=== PATIENT | male | born 1995 | race Two or more races ===

== ENCOUNTER 2025-03-16 19:51 | Emergency (ER) | payer MEDICAID, SELFPAY ==
[2025-03-16 19:52] VITALS: BMI 20.7
[2025-03-16 20:09] VITALS: BP 139/81; PULSE 106; RESP 18; TEMP 37.1; O2SAT 98
[2025-03-16 21:01] LABS: Basophils # (Auto) 0.1 Thou/mm3 (0.0-0.2); Basophils % (Auto) 0 % (0-2.5); Eosinophils # (Auto) 0.0 Thou/mm3 (0.0-0.5); Eosinophils % (Auto) 0 % (0-10); Hematocrit 48.3 % (41.0-53.0); Hemoglobin 16.7 g/dL (13.5-16.0); Immature Granulocytes Auto 0.04 Thou/mm3 (0.00-0.00); Lymphocytes # (Auto) 1.8 Thou/mm3 (1.0-4.8); Lymphocytes % (Auto) 12 % (10-50); Mean Corpuscular HGB Conc 34.6 g/dl (31.0-37.0); Mean Corpuscular Hemoglobin 29.7 pg (25.0-35.0); Mean Corpuscular Volume 86 fL (80-100); Monocytes # (Auto) 0.7 Thou/mm3 (0.0-0.8); Monocytes % (Auto) 5 % (0-12); Neutrophils # (Auto) 12.4 Thou/mm3 (1.8-7.7); Neutrophils % (Auto) 82 % (37-80); Nucleated Red Blood Cell # 0.00 Thou/mm3 (0.00-0.00); Nucleated Red Blood Cell % 0 /100 WBC (0); Platelet Count 250 Thou/mm3 (140-440); RDW Standard Deviation 37.7 fL (35.1-43.9); Red Blood Count 5.62 Miln/mm3 (4.50-5.90); White Blood Count 15.0 Thou/mm3 (3.8-10.6)
[2025-03-16 21:23] LABS: Alanine Aminotransferase 16 U/L (10-49); Albumin, Serum 5.3 gm/dL (3.5-5.0); Albumin/Globulin Ratio 2.2 (1.2-2.2); Alkaline Phosphatase 56 U/L (46-116); Anion Gap 13 (7-16); Aspartate Amino Transferase 19 U/L (0-34); BUN/Creatinine Ratio 9 Ratio (12-20); Bilirubin,Total 0.6 mg/dL (0.3-1.2); Blood Urea Nitrogen 10 mg/dL (9-23); Calcium 9.7 mg/dL (8.3-10.6); Calcium (Corrected) 9.7 mg/dL (8.5-10.1); Carbon Dioxide 24.3 mMol/L (20.0-31.0); Chloride 102 mMol/L (98-107); Creatinine (Component) 1.1 mg/dL (0.6-1.3); Estimated Creatinine Clearance 84.7 mL/min (>60); Globulin 2.4 gm/dL (2.3-3.5); Glucose 123 mg/dL (74-106); Osmolality,Calculated 277 (275-295); Potassium 3.1 mMol/L (3.4-5.1); Sodium 139 mMol/L (136-145); Total Protein 7.7 gm/dL (5.7-8.2); Troponin I < 0.020 ng/mL (0.0-0.045); eGFR > 60 See Note
--- NOTE | 2025-03-16 22:01 | XR_ITS ---
EXAMINATION: PA chest single view TECHNIQUE: Upright PA chest single view Date and time: March 16, 2025, 10:12 p.m. INDICATIONS: Chest pain today FINDINGS: Normal heart size The lungs are clear. The osseous structures are intact. IMPRESSION: No active disease
[2025-03-16 22:48] LABS: Collection Type, Urine Voided; Squamous Epithelial Cell,Urine 0 /hpf (0-5); WBC,Urine 0 /hpf (0-5)
[2025-03-16 23:12] LABS: Bacteria,Urine Rare; Bilirubin,Urine Negative (Negative); Blood,Urine Negative (Negative); Clarity,Urine Clear (Clear/Hazy); Color,Urine Colorless (Lt Yel-Yel); Glucose, Urine Negative (Negative); Ketones,Urine Negative (Negative); Leukocyte Esterase,Urine Negative (Negative); Nitrite,Urine Negative (Negative); PH,Urine 5.5 (5.0-7.0); Protein,Urine Negative (Neg - Trace); RBC,Urine < 1 /hpf (0-3); Specific Gravity,Urine 1.003 (1.001-1.035); Urobilinogen,Urine Negative mg/dL (0.0-1.0)
--- NOTE | 2025-03-16 23:51 | PD.EDCHEST ---
ED Chest Pain RME/HPI General Chief Complaint: Anxiety Stated Complaint: ANXIETY, SHAKING Time Seen by Provider: 03/16/25 20:16 Arrival date/time: This is a case of 29-year-old male with no medical history came in in the emergency room due to on and off chest pain today no shortness of breath no palpitation patient verbalized anxiety and stress at work persistence of the symptoms this patient decided to sought consult here in the emergency room Limitations: no limitations Related Data Previous Rx's ?Medication ?Instructions ?Recorded hydroxyzine HCl 25 mg tablet 25 mg PO BID PRN anxiety #10 tabs 03/16/25 Allergies Allergy/AdvReac Type Severity Reaction Status Date / Time No Known Allergies Allergy Verified 03/16/25 19:52 Review of Systems Review of Systems Systems Reviewed: All systems reviewed, normal except as documented Constitutional Constitutional: Reports system reviewed and no additional complaints, except as documented and Reports as per HPI Cardiovascular Cardiovascular: Reports system reviewed and no additional complaints, except as documented and Reports as per HPI Respiratory Respiratory: Reports system reviewed and no additional complaints, except as documented and Reports as per HPI Gastrointestinal Gastrointestinal: Reports system reviewed and no additional complaints, except as documented and Reports as per HPI Genitourinary Genitourinary: Reports system reviewed and no additional complaints, except as documented and Reports as per HPI Musculoskeletal Musculoskeletal: Reports system reviewed and no additional complaints, except as documented and Reports as per HPI Neurologic Neurologic: Reports system reviewed and no additional complaints, except as documented and Reports as per HPI Psychiatric Psychiatric: Reports system reviewed and no additional complaints, except as documented and Reports as per HPI Past Medical History Social History SMOKING STATUS: Never smoker ED Exam General Limitations: Present no limitations General appearance: Present alert, in no apparent distress and other Head Head exam: Present atraumatic, normocephalic and normal inspection Eye Eye exam: Present normal appearance, PERRL and EOMI ENT ENT exam: Present normal exam, normal oropharynx and mucous membranes moist Neck Neck exam: Present normal inspection, full ROM and trachea midline; Absent tenderness, meningismus, lymphadenopathy or thyromegaly Chest Chest inspection: Present normal inspection and symmetric chest wall rise; Absent tenderness Respiratory Respiratory exam: Present normal lung sounds bilaterally; Absent respiratory distress, wheezes, stridor, accessory muscle use or prolonged expiratory phase Cardiovascular Cardiovascular exam: Present regular rate, normal rhythm and normal heart sounds; Absent bradycardia, tachycardia, irregular rhythm, systolic murmur or diastolic murmur Abdominal Exam Abdominal exam: Present soft and normal bowel sounds; Absent distention, tenderness, guarding, rebound, rigidity, diminished bowel sounds, hyperactive bowel sounds, hypoactive bowel sounds or organomegaly Extremities Exam Extremities exam: Present normal inspection and full ROM Back Exam Back exam: Present normal inspection and full ROM Neurological Exam Neurological exam: Present alert, oriented X3, CN II-XII intact, normal gait and reflexes normal; Absent motor sensory deficit Psychiatric Psychiatric exam: Present normal affect, normal mood, anxious and other (No paranoia no hallucination); Absent depressed, agitated, flat affect, manic, homicidal ideation or suicidal ideation Skin Skin exam: Present warm, dry, intact and normal color Course Quality Measures none Orders Category Date Time Status EKG (ED ONLY) *Do not use* NOW Care 03/16/25 20:18 Completed EKG (ED Only) Stat Exams 03/16/25 20:18 Ordered XR chest 1V Stat Exams 03/16/25 22:01 Completed CBC Stat Lab 03/16/25 20:42 Completed CMP [Comprehensive Metabolic Panel] Stat Lab 03/16/25 20:42 Completed Troponin I Stat Lab 03/16/25 20:42 Completed Urinalysis Stat Lab 03/16/25 22:44 Completed LORazepam [Ativan] Med 03/16/25 23:47 Once 1 mg PO X1 ONE Potassium Chloride [K-Dur] Med 03/16/25 22:01 Discontinued 40 meq PO X1 ONE Vital Signs Vital signs: Vital Signs Temperature 98.7 F 03/16/25 20:09 Pulse Rate 106 H 03/16/25 20:09 Respiratory Rate 18 03/16/25 20:09 Blood Pressure 139/81 H 03/16/25 20:09 Pulse Oximetry (%) 98 03/16/25 20:09 Oxygen Delivery Method Room Air 03/16/25 20:09 Oxygen saturation is 98% in room air Chest Pain MDM Narrative MDM Narrative:: This is a case of 29-year-old male with no medical history came in in the emergency room due to on and off chest pain today no shortness of breath no palpitation patient verbalized anxiety and stress at work persistence of the symptoms this patient decided to sought consult here in the emergency room physical examination patient is awake alert oriented not in distress nontoxic looking well-hydrated well-nourished lungs sound is clear no crackles no rales no retraction no stridor heart normal rate regular rhythm no murmur mild anxiety no depression no suicidal no homicidal ideation no delusion no paranoia no hallucination blood test showed no leukocytosis no anemia kidney liver function is normal normal sodium but low potassium thus K-Dur was given patient was advised to follow-up with PCP to monitor potassium level as an outpatient EKG normal sinus rhythm troponin EKG is also normal chest x-ray normal based on my physical examination and history chest pain is not cardiopulmonary pathologies and only anxiety after giving Vistaril patient symptoms improved and resolved he will follow-up with PCP in 2 days for reevaluation and for any worsening symptoms or any emergent concern return precaution in the ER was advised Patient was discharged with comfortable condition walking with stable gait. Patient verbalized no further complains explained diagnosis and answered patient question. Patient is comfortable with the proposed management plan including the need to follow up with his/her primary care physician and any specialist if applicable Discussed patient for any urgent condition or worsening sx, He/She needed to go to emergency room immediately or call 911. Patient acknowledge the responsibility to follow up as instructed and to monitor her/his symptoms. For any persistence of the symptoms for more than 3-5 days return precaution advised. Discussed the result of the test and was given printed discharge instruction Patient data External records reviewed:: [facility] previous records Clinical information provided by:: patient Social determinants that could affect healthcare access:: none Patient has the following chronic illnesses:: None How is presenting disease/condition affected by chronic disease/condition?: no chronic disease Evaluation data The following diagnostics were reviewed and interpreted by me:: lab results, radiology exam(s) and EKG tracing(s) Lab and/or radiology exams considered but not ordered:: Reviewed Interpretation Summary: Reviewed Medications / Prescriptions Medications or Prescriptions considered but not ordered:: Given Medication administrations:: Medication Administration History Lorazepam (Lorazepam 0.5 Mg Tablet) 1 mg PO X1 ONE Stop: 03/16/25 23:48 Discontinued Medications Potassium Chloride (Potassium Chloride 20 Meq Tabcr) 40 meq PO X1 ONE Stop: 03/16/25 22:02 Last Admin: 03/16/25 23:11 Dose: 40 meq Documented By: Given Consultations Consultation(s) initiated? (list below): No Diagnosis Chest Pain Differential Diagnosis: other (Chest pain) Most likely diagnosis given after review of the tests above:: Chest pain anxiety Admission Indicated Admission indicated?: not indicated Explain why admission is indicated or not indicated:: Not indicated Admission Request Was there a request for admission?: No Admission Attestation Admission request attestation: Not indicated Disposition Plan Disposition Plan: Discharge Discharge Attestation Discharge Attestation: The patient and all family members were given an opportunity to ask questions and understood the discharge instructions. Discharge instructions specifically effects, indications for sooner follow up or return to the emergency department, and the expected course of current diagnosis. Patient condition: Stable Discharge Plan Plan Patient Disposition: HOME (Self Care) Patient condition on transfer: Stable Prescriptions/Referrals Prescriptions/Med Rec: New hydroxyzine HCl 25 mg tablet 25 mg PO BID PRN (Reason: anxiety) Qty: 10 0RF Referrals: Abelardo Purcell MD [Primary Care Provider, [facility]] - In 1 week Problem List Clinical Impression: Chest pain of unknown etiology, Hypokalemia, Anxiety Patient/Caregiver Discharge Instructions Education Materials: ED Anxiety Reaction, ED Chest Pain, Noncardiac, ED Hypokalemia Additional Instructions: Follow-up with your primary care physician in 2 days for reevaluation and to be referred to solutions manager for further evaluation and treatment of chest pain for possible echocardiogram stress test and Holter monitor it is also need to be in referred to psychiatrist psychologist for anxiety follow-up with your primary care physician to monitor potassium level as an outpatient recurrence persistent worsening symptoms or any emergent concern call 911 or go to the nearest emergency room take your medication as directed Print Language: German Stand Alone Forms: Hayde Award Info., Patient Portal Info Letter FRIEDA/AMISHA Supervising Physician FRIEDA/AMISHA Supervising Physician: Dr. Juares
[2025-03-17] VITALS: BP 143/75; PULSE 74; RESP 18; TEMP 36.6; O2SAT 100
== END 2025-03-17 00:09 | disposition home or self-care (01) ==
PROVIDERS: Nurse Practitioner Family; Emergency Provider Emergency Medicine; PCP Family Medicine
DX: F41.1 Generalized anxiety disorder (principal); E87.6 Hypokalemia
CPT/HCPCS: 36415; 71045; 80053; 81001; 84484; 85025; 93005; 99282; A9270

== ENCOUNTER 2025-03-18 06:04 | Emergency (ER) | payer MEDICAID, SELFPAY ==
[2025-03-18 06:05] VITALS: BMI 20.3
[2025-03-18 06:17] VITALS: BP 127/76; PULSE 104; RESP 17; TEMP 36.8; O2SAT 97
--- NOTE | 2025-03-18 06:21 | XR_ITS ---
Examination: CT abdomen and pelvis without contrast. Coronal 3-D reconstructions. Sagittal 2-D reconstructions. Date and time of exam: March 10, 2025, 0735 hours INDICATIONS: Upper abdominal pain today CTDI: vol (mGy): 4.62 DLP: (mGycm): 234 Technique: Axial images of the abdomen have been obtained, 3 mm slice thickness Intravenous contrast material has not been administered. Low dose protocols were performed. One or more of the following dose reduction techniques were used; automated exposure control, adjustment of the mA and/or KV according to patient size, use of iterative reconstruction technique. Findings: No focal liver or splenic lesions No gallstones No pancreatic edema, normal adrenal glands. No renal or ureteral calculi, no hydronephrosis Aorta normal size No bowel obstruction Normal appendix Colonic diverticulosis, no diverticulitis. No prostatomegaly Urinary bladder intact Osseous structures intact with mild disc narrowing L5-S1 IMPRESSION: Negative for pancreatitis No renal or ureteral calculi, no hydronephrosis Normal appendix No bowel obstruction or diverticulitis
--- NOTE | 2025-03-18 06:21 | EDNOTE_ITS ---
ED Abdominal Pain RME/HPI General Chief Complaint: Abdominal Pain Stated complaint: UPPER ABDOMINAL PAIN Time seen by provider: 03/18/25 06:08 Arrival date/time: 03/18/25 06:04 29-year-old male with no known medical history presents to the emergency room with a chief complaint of right upper quadrant abdominal pain and tenderness x 1 day Source: patient Mode of arrival: ambulatory Limitations: no limitations Related Data Previous Rx's ?Medication ?Instructions ?Recorded hydroxyzine HCl 25 mg tablet 25 mg PO BID PRN anxiety #10 tabs 03/16/25 Allergies Allergy/AdvReac Type Severity Reaction Status Date / Time No Known Allergies Allergy Verified 03/16/25 19:52 Review of Systems Review of Systems Systems Reviewed: All systems reviewed, normal except as documented Constitutional Constitutional: Reports system reviewed and no additional complaints, except as documented, Denies fatigue, Denies fever(s), Denies headache(s) and Denies weakness Eyes Eyes: Reports system reviewed and no additional complaints, except as documented, Denies blurry vision and Denies change in vision ENT Ears, Nose, Mouth, and Throat: Reports system reviewed and no additional complaints, except as documented, Denies otalgia, Denies headache(s), Denies nasal congestion, Denies throat swelling and Denies vertigo Cardiovascular Cardiovascular: Reports system reviewed and no additional complaints, except as documented, Denies chest pain, Denies dyspnea and Denies dyspnea on exertion Respiratory Respiratory: Reports system reviewed and no additional complaints, except as documented, Denies chest congestion, Denies cough, Denies dyspnea, Denies dyspnea on exertion and Denies wheezing Gastrointestinal Gastrointestinal: Reports system reviewed and no additional complaints, except as documented, Reports abdominal pain, Reports cramping, Reports nausea and Denies vomiting Genitourinary Genitourinary: Reports system reviewed and no additional complaints, except as documented, Denies dysuria and Denies hematuria Musculoskeletal Musculoskeletal: Reports system reviewed and no additional complaints, except as documented and Denies back pain Integumentary/Breasts Skin/Breast: Reports system reviewed and no additional complaints, except as documented and Denies wounds Neurologic Neurologic: Reports system reviewed and no additional complaints, except as documented, Denies confusion, Denies headache(s), Denies lack of coordination, Denies vertigo and Denies weakness Psychiatric Psychiatric: Reports system reviewed and no additional complaints, except as documented, Denies anxiety, Denies confusion, Denies depression, Denies paranoia, Denies suicidal ideation and Denies tactile hallucinations Endocrine Endocrine: Reports system reviewed and no additional complaints, except as documented and Denies fatigue Hematologic/Lymphatic Hematologic/Lymphatic: Reports system reviewed and no additional complaints, except as documented and Denies lymphadenopathy Allergic/Immunologic Allergic/Immunologic: Reports system reviewed and no additional complaints, except as documented, Denies throat swelling, Denies urticaria and Denies wheezing Past Medical History Social History SMOKING STATUS: Never smoker ED Exam General Limitations: Present no limitations General appearance: Present alert and in no apparent distress Head Head exam: Present atraumatic Eye Eye exam: Present normal appearance, PERRL and EOMI ENT ENT exam: Present normal exam, normal oropharynx and mucous membranes moist Neck Neck exam: Present normal inspection, full ROM and trachea midline Chest Chest inspection: Present normal inspection and symmetric chest wall rise Respiratory Respiratory exam: Present normal lung sounds bilaterally Cardiovascular Cardiovascular exam: Present regular rate, normal rhythm and normal heart sounds Abdominal Exam Abdominal exam: Present soft, tenderness, normal bowel sounds and Brunner's sign; Absent tenderness at McBurney's Point Abdominal tenderness: Present RUQ and mild Extremities Exam Extremities exam: Present normal inspection and full ROM Back Exam Back exam: Present normal inspection and full ROM Neurological Exam Neurological exam: Present alert, oriented X3 and CN II-XII intact Psychiatric Psychiatric exam: Present normal affect and normal mood Skin Skin exam: Present warm, dry, intact and normal color Course Quality Measures none Orders Category Date Time Status CT abdomen pelvis wo con Stat Exams 03/18/25 06:21 Completed US gall bladder Stat Exams 03/18/25 06:21 Completed CBC Stat Lab 03/18/25 06:57 Completed CMP [Comprehensive Metabolic Panel] Stat Lab 03/18/25 06:57 Completed Lipase Stat Lab 03/18/25 06:57 Completed UA [Urinalysis] Stat Lab 03/18/25 06:26 Completed Urine Culture Stat Lab 03/18/25 06:21 Received Acetaminophen Tab [Tylenol ES Tab] Med 03/18/25 06:23 Discontinued 1,000 mg PO X1 ONE Ondansetron Odt [Zofran Odt] Med 03/18/25 06:23 Discontinued 4 mg PO X1 ONE mg Hyd/Al Hyd/Heather Susp [Maalox Susp] Med 03/18/25 06:23 Discontinued 30 ml PO X1 ONE Vital Signs Vital signs: Vital Signs Temperature 98.2 F 03/18/25 06:17 Pulse Rate 104 H 03/18/25 06:17 Respiratory Rate 17 03/18/25 06:17 Blood Pressure 127/76 03/18/25 06:17 Pulse Oximetry (%) 97 03/18/25 06:17 Oxygen Delivery Method Room Air 03/18/25 06:17 Abdominal Pain MDM MDM Narrative MDM Narrative:: 29-year-old male with no known medical history presents to the emergency room with a chief complaint of right upper quadrant abdominal pain and tenderness x 1 day Patient is hemodynamically stable and in no apparent distress. Patient is afebrile nontachycardic nontachypneic Physical examination shows right upper quadrant abdominal pain and tenderness with palpation. There is negative Brunner sign. No right lower quadrant abdominal pain or left lower quadrant abdominal pain CT of the abdomen and pelvis was negative for any acute findings. Ultrasound of the gallbladder was negative for any acute findings. There is no leukocytosis or acute findings on the blood work or urine Patient was discharged and educated to follow-up with primary care provider in the next 24 to 48 hours and return to the emergency room for any evidence of worsening signs or symptoms Patient data External records reviewed:: [facility] previous records Clinical information provided by:: patient Social determinants that could affect healthcare access:: none Patient has the following chronic illnesses:: No chronic illness How is presenting disease/condition affected by chronic disease/condition?: no chronic disease Evaluation data The following diagnostics were reviewed and interpreted by me:: lab results and radiology exam(s) Lab and/or radiology exams considered but not ordered:: Labs and radiology exams considered and ordered Interpretation Summary: Ultrasound gallbladder-Findings: Normal gallbladder. Normal common bile duct 0.2 cm Pancreatic head 1.6 cm Liver 13.2 cm no liver lesions Normal hepatopetal portal venous flow Patent IVC IMPRESSION: Negative study CT abdomen pelvis-Findings: No focal liver or splenic lesions No gallstones No pancreatic edema, normal adrenal glands. No renal or ureteral calculi, no hydronephrosis Aorta normal size No bowel obstruction Normal appendix Colonic diverticulosis, no diverticulitis. No prostatomegaly Urinary bladder intact Osseous structures intact with mild disc narrowing L5-S1 IMPRESSION: Negative for pancreatitis No renal or ureteral calculi, no hydronephrosis Normal appendix No bowel obstruction or diverticulitis Medications / Prescriptions Medications or Prescriptions considered but not ordered:: No medication given Medication administrations:: Medication Administration History Discontinued Medications Acetaminophen (Acetaminophen 500 Mg Tablet) 1,000 mg PO X1 ONE Stop: 03/18/25 06:24 Last Admin: 03/18/25 06:36 Dose: 1,000 mg Documented By: KAVITHA Al Hydrox/Mg Hydrox/Simethicone (Mg Hyd/Al Hyd/Heather (Maalox Reg) Susp 30 Ml Udc) 30 ml PO X1 ONE Stop: 03/18/25 06:24 Last Admin: 03/18/25 06:37 Dose: 30 ml Documented By: KAVITHA Ondansetron HCl (Ondansetron Odt 4 Mg Tabrap) 4 mg PO X1 ONE; Protocol Stop: 03/18/25 06:24 Last Admin: 03/18/25 06:36 Dose: 4 mg Documented By: KAVITHA No medication given Consultations Consultation(s) initiated? (list below): No Diagnosis Differential diagnosis abdominal pain: abdominal pain, acute appendicitis, gastr oenteritis and pancreatitis Most likely diagnosis given after review of the tests above:: Gastroenteritis Admission Indicated Admission indicated?: not indicated Admission Request Was there a request for admission?: No Disposition Plan Disposition Plan: Discharge Discharge Attestation Discharge Attestation: The patient and all family members were given an opportunity to ask questions and understood the discharge instructions. Discharge instructions specifically effects, indications for sooner follow up or return to the emergency department, and the expected course of current diagnosis. Patient condition: Stable Discharge Plan Plan Patient Disposition: HOME (Self Care) Discharge Disposition comment: Stable Prescriptions/Referrals Prescriptions/Med Rec: No Action hydroxyzine HCl 25 mg tablet 25 mg PO BID PRN (Reason: anxiety) Qty: 10 0RF Referrals: Abelardo Purcell MD [Primary Care Provider, [facility]] - In 1 week Problem List Clinical Impression: Gastroenteritis Patient/Caregiver Discharge Instructions Education Materials: ED Gastroenteritis, Noninfectious Additional Instructions: Please follow-up with your primary care provider in the next [address] of your abdomen and pelvis was negative for any acute findings. Your ultrasound of your gallbladder was within normal limits For any evidence of worsening signs or symptoms return to the emergency room immediately Print Language: Iraqi Stand Alone Forms: Hayde Award Info., Work/School Release, Patient Portal Info Letter
--- NOTE | 2025-03-18 06:21 | XR_ITS ---
Examination: Abdomen sonogram, Limited Date and time of exam: March 18, 2025, 0730 hours INDICATIONS: Upper abdominal pain beginning 5 days ago Technique: Real-time dc scale transabdominal sonographic images of the upper abdomen obtained. Findings: Normal gallbladder. Normal common bile duct 0.2 cm Pancreatic head 1.6 cm Liver 13.2 cm no liver lesions Normal hepatopetal portal venous flow Patent IVC IMPRESSION: Negative study
[2025-03-18 06:33] LABS: Collection Type, Urine Clean Catch; Squamous Epithelial Cell,Urine 0 /hpf (0-5)
[2025-03-18] MEDS: ONDANSETRON ODT 4 MG TABRAP PO (06:36)
[2025-03-18] MEDS: ACETAMINOPHEN 500 MG TABLET 1000 MG PO (06:36)
[2025-03-18] MEDS: MG HYD/AL HYD/SIME (Maalox Reg) SUSP 30 ML UDC PO (06:37)
[2025-03-18 06:40] LABS: Bilirubin,Urine Negative (Negative); Blood,Urine Negative (Negative); Clarity,Urine Clear (Clear/Hazy); Color,Urine Yellow (Lt Yel-Yel); Glucose, Urine Negative (Negative); Ketones,Urine 1+ (Negative); Leukocyte Esterase,Urine Negative (Negative); Nitrite,Urine Negative (Negative); PH,Urine 6.5 (5.0-7.0); Protein,Urine Trace (Neg - Trace); RBC,Urine 3 /hpf (0-3); Specific Gravity,Urine 1.028 (1.001-1.035); Urobilinogen,Urine Negative mg/dL (0.0-1.0); WBC,Urine 1 /hpf (0-5)
[2025-03-18 07:14] LABS: Basophils # (Auto) 0.0 Thou/mm3 (0.0-0.2); Basophils % (Auto) 0 % (0-2.5); Eosinophils # (Auto) 0.1 Thou/mm3 (0.0-0.5); Eosinophils % (Auto) 1 % (0-10); Hematocrit 50.1 % (41.0-53.0); Hemoglobin 17.4 g/dL (13.5-16.0); Immature Granulocytes Auto 0.02 Thou/mm3 (0.00-0.00); Lymphocytes # (Auto) 1.0 Thou/mm3 (1.0-4.8); Lymphocytes % (Auto) 10 % (10-50); Mean Corpuscular HGB Conc 34.7 g/dl (31.0-37.0); Mean Corpuscular Hemoglobin 30.2 pg (25.0-35.0); Mean Corpuscular Volume 87 fL (80-100); Monocytes # (Auto) 0.7 Thou/mm3 (0.0-0.8); Monocytes % (Auto) 8 % (0-12); Neutrophils # (Auto) 7.7 Thou/mm3 (1.8-7.7); Neutrophils % (Auto) 81 % (37-80); Nucleated Red Blood Cell # 0.00 Thou/mm3 (0.00-0.00); Nucleated Red Blood Cell % 0 /100 WBC (0); Platelet Count 228 Thou/mm3 (140-440); RDW Standard Deviation 39.0 fL (35.1-43.9); Red Blood Count 5.76 Miln/mm3 (4.50-5.90); White Blood Count 9.5 Thou/mm3 (3.8-10.6)
[2025-03-18 07:34] LABS: Alanine Aminotransferase 12 U/L (10-49); Albumin, Serum 5.3 gm/dL (3.5-5.0); Albumin/Globulin Ratio 2.4 (1.2-2.2); Alkaline Phosphatase 59 U/L (46-116); Anion Gap 10 (7-16); Aspartate Amino Transferase 15 U/L (0-34); BUN/Creatinine Ratio 8 Ratio (12-20); Bilirubin,Total 1.2 mg/dL (0.3-1.2); Blood Urea Nitrogen 10 mg/dL (9-23); Calcium 9.7 mg/dL (8.3-10.6); Calcium (Corrected) 9.7 mg/dL (8.5-10.1); Carbon Dioxide 26.8 mMol/L (20.0-31.0); Chloride 105 mMol/L (98-107); Creatinine (Component) 1.2 mg/dL (0.6-1.3); Estimated Creatinine Clearance 76.4 mL/min (>60); Globulin 2.2 gm/dL (2.3-3.5); Glucose 106 mg/dL (74-106); Lipase 28 U/L (12-53); Osmolality,Calculated 282 (275-295); Potassium 4.2 mMol/L (3.4-5.1); Sodium 142 mMol/L (136-145); Total Protein 7.5 gm/dL (5.7-8.2); eGFR > 60 See Note
--- NOTE | 2025-03-18 07:41 | PC.NURSE ---
CALLED PT FOR PAIN MED EVAL; CALLED PT IN LOBBY AND OUTSIDE; NO ANSWER.
[2025-03-18 10:51] VITALS: BP 112/75; PULSE 79; RESP 19; TEMP 36.9; O2SAT 98
== END 2025-03-18 11:16 | disposition home or self-care (01) ==
PROVIDERS: Emergency Provider Nurse Practitioner Family; PCP Family Medicine
DX: K52.9 Noninfective gastroenteritis and colitis, unspecified (principal); K57.30 Diverticulosis of large intestine without perforation or abscess without bleeding
CPT/HCPCS: 36415; 74176; 76705; 80053; 81001; 83690; 85025; 87086; 99283; Q0162; A9270

== ENCOUNTER 2025-03-25 17:09 | Emergency (ER) | payer MEDICAID, SELFPAY ==
[2025-03-25 17:55] VITALS: BP 129/68; PULSE 76; RESP 18; TEMP 36.9; O2SAT 99; BMI 20.1
--- NOTE | 2025-03-25 18:00 | EDNOTE_ITS ---
<Statement entered by Chantell Bruner MD - 03/26/25 09:34> As co-signing physician, I was present and available for consult prn. I concur with the plan and care as documented by the midlevel provider. Nausea/Vomit./Diarrhea-RME/HPI General Chief complaint: Nausea/Vomiting/Diarrhea Stated complaint: DIARRHEA, WEAK, SHAKY, UNABLE TO EAT Time Seen by Provider: 03/25/25 17:58 Arrival date/time: 03/25/25 17:09 29-year-old male with no significant medical problems presents with complaints of diarrhea ongoing for last couple of days patient also reports nausea without vomiting. Patient reports no abdominal pain no chest pain no shortness of breath no headache dizziness weakness patient does report generalized fatigue and decreased appetite Limitations: no limitations Related Data Previous Rx's ?Medication ?Instructions ?Recorded hydroxyzine HCl 25 mg tablet 25 mg PO BID PRN anxiety #10 tabs 03/16/25 loperamide 2 mg capsule (Imodium 2 mg PO Q6H PRN loose stool #14 03/25/25 A-D) caps ondansetron 4 mg disintegrating 4 mg PO Q8H PRN nausea and 03/25/25 tablet vomiting #10 tabs Allergies Allergy/AdvReac Type Severity Reaction Status Date / Time No Known Allergies Allergy Verified 03/25/25 17:12 Review of Systems Review of Systems Systems Reviewed: All systems reviewed, normal except as documented Constitutional Constitutional: Reports system reviewed and no additional complaints, except as documented, Denies fever(s) and Denies headache(s) Eyes Eyes: Reports system reviewed and no additional complaints, except as documented and Denies blurry vision ENT Ears, Nose, Mouth, and Throat: Reports system reviewed and no additional complaints, except as documented, Denies headache(s), Denies nasal congestion and Denies nasal discharge Cardiovascular Cardiovascular: Reports system reviewed and no additional complaints, except as documented, Denies chest pain and Denies dyspnea Respiratory Respiratory: Reports system reviewed and no additional complaints, except as documented, Denies chest congestion, Denies cough and Denies dyspnea Gastrointestinal Gastrointestinal: Reports system reviewed and no additional complaints, except as documented, Denies abdominal pain, Reports loose stools and Reports nausea Integumentary/Breasts Skin/Breast: Reports system reviewed and no additional complaints, except as documented and Denies rash Neurologic Neurologic: Reports system reviewed and no additional complaints, except as documented, Reports as per HPI and Denies headache(s) Past Medical History Social History SMOKING STATUS: Never smoker ED Exam General Limitations: Present no limitations General appearance: Present alert and in no apparent distress Head Head exam: Present atraumatic Eye Eye exam: Present normal appearance, PERRL and EOMI ENT ENT exam: Present normal exam, normal oropharynx and mucous membranes moist Neck Neck exam: Present normal inspection, full ROM and trachea midline Chest Chest inspection: Present normal inspection and symmetric chest wall rise Respiratory Respiratory exam: Present normal lung sounds bilaterally Cardiovascular Cardiovascular exam: Present regular rate, normal rhythm and normal heart sounds Abdominal Exam Abdominal exam: Present soft and normal bowel sounds; Absent distention, tenderness, guarding, rebound or rigidity Abdominal tenderness: Absent RUQ or RLQ Extremities Exam Extremities exam: Present normal inspection and full ROM Back Exam Back exam: Present normal inspection and full ROM Neurological Exam Neurological exam: Present alert, oriented X3 and CN II-XII intact Psychiatric Psychiatric exam: Present normal affect and normal mood Skin Skin exam: Present warm, dry, intact and normal color Course Quality Measures none Orders Category Date Time Status Loperamide [Imodium] Med 03/25/25 17:58 Discontinued 4 mg PO X1 ONE Ondansetron Odt [Zofran Odt] Med 03/25/25 17:58 Discontinued 4 mg PO X1 ONE Vital Signs Vital signs: Vital Signs Temperature 98.4 F 03/25/25 17:55 Pulse Rate 76 03/25/25 17:55 Respiratory Rate 18 03/25/25 17:55 Blood Pressure 129/68 03/25/25 17:55 Pulse Oximetry (%) 99 03/25/25 17:55 Oxygen Delivery Method Room Air 03/25/25 17:55 O2 saturation 99% room air within normal limits thank Nausea/Vomiting/Diarrhea MDM Narrative MDM Narrative:: 29-year-old male with no significant medical problems presents with complaints of diarrhea ongoing for last couple of days patient also reports nausea without vomiting. Patient reports no abdominal pain no chest pain no shortness of breath no headache dizziness weakness patient does report generalized fatigue and decreased appetite On exam patient well-appearing patient does not appear ill or toxic no acute distress I did offer lab work patient declined Patient given dose of Zofran and Imodium here and discharged home with the same I explained to the patient should symptoms persist or worsen I would like him to return for evaluation Patient data External records reviewed:: [facility] previous records Clinical information provided by:: patient Social determinants that could affect healthcare access:: none Patient has the following chronic illnesses:: None How is presenting disease/condition affected by chronic disease/condition?: no chronic disease Evaluation data The following diagnostics were reviewed and interpreted by me:: lab results and other (specify) (N/A) Lab and/or radiology exams considered but not ordered:: Considered not ordered Interpretation Summary: N/A Medications / Prescriptions Medications / Prescriptions considered but not ordered:: Given Medication administrations:: Medication Administration History Discontinued Medications Loperamide HCl (Loperamide 2 Mg Capsule) 4 mg PO X1 ONE Stop: 03/25/25 17:59 Last Admin: 03/25/25 18:20 Dose: 4 mg Documented By: Ondansetron HCl (Ondansetron Odt 4 Mg Tabrap) 4 mg PO X1 ONE; Protocol Stop: 03/25/25 17:59 Last Admin: 03/25/25 18:20 Dose: 4 mg Documented By: Given Consultations Consultation(s) initiated? (list below): No Diagnosis Nausea Differential Diagnosis: traveler's diarrhea, food poisoning and gastroenteritis Most likely diagnosis given after review of the tests above:: Diarrhea Admission Indicated Admission indicated?: not indicated Admission Request Was there a request for admission?: No Disposition Plan Disposition Plan: Discharge Discharge Attestation Discharge Attestation: The patient and all family members were given an opportunity to ask questions and understood the discharge instructions. Discharge instructions specifically effects, indications for sooner follow up or return to the emergency department, and the expected course of current diagnosis. Patient condition: Stable Discharge Plan Plan Patient Disposition: HOME (Self Care) Discharge Disposition comment: Stable Prescriptions/Referrals Prescriptions/Med Rec: New loperamide [Imodium A-D] 2 mg capsule 2 mg PO Q6H PRN (Reason: loose stool) Qty: 14 0RF ondansetron 4 mg tablet,disintegrating 4 mg PO Q8H PRN (Reason: nausea and vomiting) Qty: 10 0RF No Action hydroxyzine HCl 25 mg tablet 25 mg PO BID PRN (Reason: anxiety) Qty: 10 0RF Problem List Clinical Impression: Gastroenteritis Patient/Caregiver Discharge Instructions Education Materials: How the Colon Works Additional Instructions: Please follow up with your primary care doctor in the next 24-48hrs for any worsening symptoms return here immediately Print Language: Slovenian Stand Alone Forms: Hayde Award Info., Work/School Release, Patient Portal Info Letter PA/KOSHER BUTCHER Supervising Physician PA/KOSHER BUTCHER Supervising Physician: Dr. Bruner
[2025-03-25] MEDS: ONDANSETRON ODT 4 MG TABRAP PO (18:20)
[2025-03-25] MEDS: LOPERAMIDE 2 MG CAPSULE 4 MG PO (18:20)
== END 2025-03-25 18:20 | disposition home or self-care (01) ==
LOC: SERX 18:35
PROVIDERS: Emergency Provider Emergency Medicine
DX: K52.9 Noninfective gastroenteritis and colitis, unspecified (principal)
CPT/HCPCS: 99281; Q0162; A9270